=== PATIENT | female | born 1985 | race Caucasian/White ===

== ENCOUNTER 2016-11-19 14:57 | Observation (INO) | payer BC ==
[~2016-11-19] VITALS: Ht 162.6 cm; Wt 65.5 kg
[2016-11-19 15:05] VITALS: BP 132/82
[2016-11-19 17:40] LABS: ASPARTATE AMINO TRANSFERASE 14 U/L (15-37); BLOOD UREA NITROGEN 5 mg/dL (7-18)
== END 2016-11-19 19:00 | disposition home or self-care (01) ==
LOC: LDOP 14:57 → LDIP 17:09
PROVIDERS: ADMIT Obstetrics & Gynecology; ATTEND Obstetrics & Gynecology
DX: O99.342 Other mental disorders complicating pregnancy, second trimester (principal); F41.9 Anxiety disorder, unspecified; O99.512 Diseases of the respiratory system complicating pregnancy, second trimester; R06.02 Shortness of breath; O26.893 Other specified pregnancy related conditions, third trimester; R07.9 Chest pain, unspecified; Z3A.27 27 weeks gestation of pregnancy
CPT/HCPCS: 36415; 59025; 71010; 80053; 81003; 84550; 85025; 87086; 93005; G0378

== ENCOUNTER 2016-12-25 07:04 | Observation (INO) | payer BC ==
[~2016-12-25] VITALS: Ht 162.6 cm; Wt 68.1 kg
[2016-12-25 07:16] VITALS: BP 129/75
[2016-12-25] MEDS ORDERED: MAALOX/HYOSCYAMINE/LIDOCAINE 45 ML BTL PO ONE (08:00)
[2016-12-25 08:12] LABS: HEMATOCRIT 34.7 % (34.6-47.8); HEMOGLOBIN 11.6 g/dL (11.7-16.4); WHITE BLOOD COUNT 11.8 x10^3/uL (3.4-10)
[2016-12-25 08:14] LABS: ASPARTATE AMINO TRANSFERASE 44 U/L (15-37); BLOOD UREA NITROGEN 7 mg/dL (7-18)
[2016-12-25] MEDS ORDERED: MORPHINE SULFATE 4 MG/ML, 1ML IVPush PRN (09:00)
[2016-12-25] MEDS: LACTATED RINGERS 1,000 ML IV SCH ×2 (09:02→11:14)
[2016-12-25] MEDS ORDERED: morphine SULFATE 10 MG/ML, 1ML ONE (09:12)
[2016-12-25] MEDS ORDERED: TERBUTALINE 1 MG/ML, 1ML ONE (11:22)
[2016-12-25] MEDS ORDERED: TERBUTALINE 1 MG/ML, 1ML SQ ONE (11:30)
[2016-12-25 13:39] LABS: HEMATOCRIT 32.7 % (34.6-47.8); HEMOGLOBIN 10.9 g/dL (11.7-16.4); WHITE BLOOD COUNT 11.6 x10^3/uL (3.4-10)
== END 2016-12-25 18:35 | disposition home or self-care (01) ==
LOC: LDOP 07:04 → LDIP 08:53
PROVIDERS: ADMIT Obstetrics & Gynecology; ATTEND Obstetrics & Gynecology
DX: O26.893 Other specified pregnancy related conditions, third trimester (principal); R10.13 Epigastric pain; R10.33 Periumbilical pain; D72.829 Elevated white blood cell count, unspecified; O98.513 Other viral diseases complicating pregnancy, third trimester; O99.343 Other mental disorders complicating pregnancy, third trimester; F32.9 Major depressive disorder, single episode, unspecified; F41.9 Anxiety disorder, unspecified; G43.909 Migraine, unspecified, not intractable, without status migrainosus; Z87.01 Personal history of pneumonia (recurrent); Z3A.32 32 weeks gestation of pregnancy
CPT/HCPCS: 36415; 59025; 76705; 76815; 80053; 81001; 82150; 83690; 84550; 85025; 96361; 96372; 96374; G0378; J3105; J7120; 96360; 96375

== ENCOUNTER 2017-01-03 14:24 | Outpatient (CLI) | payer BC ==
[~2017-01-03] VITALS: Ht 162.6 cm; Wt 68.1 kg
[2017-01-03 14:39] VITALS: BP 130/77
[2017-01-03 15:05] LABS: HEMATOCRIT 34.6 % (34.6-47.8); HEMOGLOBIN 11.6 g/dL (11.7-16.4); WHITE BLOOD COUNT 7.3 x10^3/uL (3.4-10)
[2017-01-03 15:17] LABS: BLOOD UREA NITROGEN 7 mg/dL (7-18)
[2017-01-03 15:18] LABS: ASPARTATE AMINO TRANSFERASE 18 U/L (15-37)
== END 2017-01-03 16:30 | disposition home or self-care (01) ==
LOC: LDOP 14:24
PROVIDERS: ATTEND Obstetrics & Gynecology
DX: O13.3 Gestational [pregnancy-induced] hypertension without significant proteinuria, third trimester (principal); O99.343 Other mental disorders complicating pregnancy, third trimester; F32.9 Major depressive disorder, single episode, unspecified; Z3A.33 33 weeks gestation of pregnancy
CPT/HCPCS: 36415; 59025; 80053; 81001; 82570; 84156; 84550; 85025; 99211; G0463

== ENCOUNTER 2017-02-18 09:48 | Inpatient (IN) | payer BC ==
[~2017-02-18] VITALS: Ht 162.6 cm; Wt 70.0 kg
[2017-02-18] MEDS ORDERED: D5%-LACTATED RINGERS 1,000 ML IV SCH (10:03)
[2017-02-18] MEDS ORDERED: OXYTOCIN 30U/ 0.9% NaCL 500ML 500 ML IV ONE (10:03)
[2017-02-18] MEDS ORDERED: FENTANYL PF 100 MCG/2ML IVPush PRN (10:30)
[2017-02-18] MEDS ORDERED: FENTANYL PF 100 MCG/2ML IV PRN (10:30)
[2017-02-18] MEDS ORDERED: DIPH25CA61 PO (10:47)
[2017-02-18] MEDS ORDERED: PREN1TAB60 PO (10:47)
[2017-02-18] MEDS ORDERED: PSEU30TA27 PO (10:47)
[2017-02-18] MEDS ORDERED: AMOX-291 PO (10:47)
[2017-02-18 10:48] VITALS: BP 132/83
[2017-02-18] MEDS ORDERED: LIDOCAINE 1%, 20ML ONE (10:48)
[2017-02-18] MEDS ORDERED: NEWBORN KIT ONE (10:48)
[2017-02-18] MEDS ORDERED: OXYTOCIN 30U/ 0.9% NaCL 500ML 500 ML ONE ×2 (10:49→22:23)
[2017-02-18] MEDS ORDERED: MISOPROSTOL 200 MCG TABLET ONE (10:49)
[2017-02-18 11:53] LABS: BLOOD UREA NITROGEN 6 mg/dL (7-18)
[2017-02-18 11:58] LABS: ASPARTATE AMINO TRANSFERASE 27 U/L (15-37)
[2017-02-18 12:37] LABS: HEMATOCRIT 36.8 % (34.6-47.8); HEMOGLOBIN 12.6 g/dL (11.7-16.4); WHITE BLOOD COUNT 8.2 x10^3/uL (3.4-10)
[2017-02-18] MEDS: LACTATED RINGERS 1,000 ML IV SCH ×2 (15:28→16:12)
[2017-02-18] MEDS ORDERED: FENTANYL PF 100 MCG/2ML ONE (15:40)
[2017-02-18] MEDS ORDERED: FENTANYL/BUPIV./NS/PF 250 ML EPIDCONT SCH (16:16)
[2017-02-18] MEDS ORDERED: LACTATED RINGERS 1,000 ML IV SCH (16:16)
[2017-02-18] MEDS ORDERED: BUPIVACAINE/PF 0.25% ONE (16:18)
[2017-02-18] MEDS ORDERED: FENTANYL/BUPIV./NS/PF 250 ML EPIDCONT ONE (16:18)
[2017-02-18] MEDS ORDERED: LACTATED RINGERS 1,000 ML IVBOLUS PRN (16:30)
[2017-02-18] MEDS ORDERED: EPHEDRINE 50 MG/ML, 1ML IVPush PRN (16:30)
[2017-02-18] MEDS ORDERED: NALOXONE 0.4 MG/ML, 1ML IVPush PRN (16:30)
[2017-02-18] MEDS: OXYTOCIN 30U/ 0.9% NaCL 500ML 500 ML IV SCH (21:49)
[2017-02-18] MEDS ORDERED: MISOPROSTOL 200 MCG TABLET PR PRN (22:00)
[2017-02-18] MEDS ORDERED: OXYcodone/APAP 5/325MG TABLET PO PRN ×2 (22:00)
[2017-02-18] MEDS ORDERED: ONDANSETRON 2MG/ML, 2ML IV PRN (22:00)
[2017-02-18] MEDS ORDERED: ACETAMINOPHEN 325 MG TABLET PO PRN ×2 (22:00)
[2017-02-18] MEDS ORDERED: OXYcodone/APAP 5/325MG TABLET ONE (23:25)
[2017-02-18] MEDS ORDERED: IBUPROFEN 600 MG TABLET ONE (23:25)
[2017-02-18] MEDS: IBUPROFEN 600 MG TABLET PO PRN (23:26)
[2017-02-19 00:20] VITALS: BP 139/83
[2017-02-19 04:20] VITALS: BP 134/80
[2017-02-19 06:43] LABS: HEMOGLOBIN 12.5 g/dL (11.7-16.4); WHITE BLOOD COUNT 16.2 x10^3/uL (3.4-10)
[2017-02-19] MEDS: OXYTOCIN 30U/ 0.9% NaCL 500ML 500 ML IV SCH ×2 (07:49→17:49)
[2017-02-19 08:10] VITALS: BP 132/85
[2017-02-19] MEDS: DOCUSATE 100 MG CAPSULE PO PRN ×2 (08:55→23:34)
[2017-02-19] MEDS: IBUPROFEN 600 MG TABLET PO PRN ×3 (08:55→23:34)
[2017-02-19] MEDS: PRENATAL VIT/IRON/FA 1 EACH TABLET PO SCH (08:55)
[2017-02-19 12:45] VITALS: BP 137/77
[2017-02-19 16:45] VITALS: BP 139/76
[2017-02-19 19:40] VITALS: BP 145/89
[2017-02-20] MEDS: OXYTOCIN 30U/ 0.9% NaCL 500ML 500 ML IV SCH (03:49)
[2017-02-20 08:00] VITALS: BP 133/86
[2017-02-20] MEDS: PRENATAL VIT/IRON/FA 1 EACH TABLET PO SCH (08:17)
[2017-02-20] MEDS: DOCUSATE 100 MG CAPSULE PO PRN (08:17)
[2017-02-20] MEDS: IBUPROFEN 600 MG TABLET PO PRN (08:18)
[2017-02-20] MEDS ORDERED: IBUP-1222 PO (09:53)
[2017-02-20] MEDS ORDERED: OXYC-302 PO (09:54)
== END 2017-02-20 13:15 | disposition home or self-care (01) | DRG 775 ==
LOC: LDOP 09:48 → LDIP 10:03 → 2NW 02-19 01:17
PROVIDERS: ADMIT Obstetrics & Gynecology; ATTEND Obstetrics & Gynecology
PROC: 3E0S3BZ Introduction of Anesthetic Agent into Epidural Space, Percutaneous Approach (ICD-10-PCS; principal; 2017-02-18)
PROC: 10E0XZZ Delivery of Products of Conception, External Approach (ICD-10-PCS; 2017-02-18)
PROC: 0KQM0ZZ Repair Perineum Muscle, Open Approach (ICD-10-PCS; 2017-02-18)
PROC: 00HU33Z Insertion of Infusion Device into Spinal Canal, Percutaneous Approach (ICD-10-PCS; 2017-02-18)
DX: O77.0 Labor and delivery complicated by meconium in amniotic fluid (principal); I10 Essential (primary) hypertension; F32.9 Major depressive disorder, single episode, unspecified; O16.4 Unspecified maternal hypertension, complicating childbirth; G43.909 Migraine, unspecified, not intractable, without status migrainosus; O70.1 Second degree perineal laceration during delivery; Z3A.40 40 weeks gestation of pregnancy; Z37.0 Single live birth
CPT/HCPCS: 36415; 80053; 81003; 84550; 85025; 86850; 86900; 89060; J3010; J3490; J2590; J7120; Q0114